=== PATIENT | female | born 1965 | race Caucasian/White ===

== ENCOUNTER → 2018-01-22 | Outpatient (CLI) | payer OTHER ==
[~2018-01-22] MED LIST: AUGMENTIN 875875 MG PO; HYDROXYZINE HCL10 M1 PO; IBUPROFEN 800800 M1 PO; IBUPROFEN 800800 MG PO; KEFLEX500 MG PO; NORCO 5-325 TA1 EACH PO; ONDANSETRON HCL4 M2 PO; PERCOCET PO; PRILOSEC; SILVADENE20 GM TP; ULTRAM 50MG TAB50 MG PO; ZOFRAN ODT4 MG PO
== END ==
LOC: M.RAD 11:16
DX: Z12.31 Encounter for screening mammogram for malignant neoplasm of breast (principal)

== ENCOUNTER 2019-01-09 08:52 | Emergency (ER) | payer OTHER ==
[~2019-01-09] VITALS: Ht 149.9 cm; Wt 65.8 kg
[2019-01-09] MEDS ORDERED: REQUIP 1 MG TABL1 M1 PO (09:02)
[2019-01-09 09:06] LABS: ICTOTEST (BILI CONFIRMATORY) Negative (Negative); URINE BILIRUBIN 1+ (Negative); URINE BLOOD 3+ (Negative); URINE CLARITY CLEAR; URINE COLOR YELLOW; URINE GLUCOSE-RANDOM NEGATIVE (Negative); URINE KETONES NEGATIVE (Negative); URINE LEUKOCYTES-REFLEX NEGATIVE (Negative); URINE NITRITE-REFLEX NEGATIVE (Negative); URINE PROTEIN TRACE (Negative); URINE SPECIFIC GRAVITY >= 1.030 (1.005-1.030); URINE UROBILINOGEN 0.2 E.U./dl (0.2-1.0)
[2019-01-09 09:20] LABS: ABSOLUTE BASOPHILS 0.1 thou/uL (0.0-0.2); ABSOLUTE EOSINOPHILS 0.1 thou/uL (0.0-0.7); ABSOLUTE LYMPHOCYTES 1.6 thou/uL (0.8-5.3); ABSOLUTE MONOCYTES 0.6 thou/uL (0.0-1.2); ABSOLUTE NEUTROPHILS 9.3 thou/uL (1.6-8.1); BASOPHILS 0.6 %; EOSINOPHILS 0.8 %; HEMATOCRIT 45.1 % (37.0-47.0); HEMOGLOBIN 15.5 gm/dL (12.0-15.0); MCH 32.2 pg (26.0-34.0); MCHC 34.3 g/dL (28.0-37.0); MONOCYTES 5.5 %; MPV 9.1 fl. (7.2-11.1); NUCLEATED RBCS 0 /100WBC; PLATELET COUNT* 246 thou/uL (150-400); POLYS 79.1 %; RDW-CV 13.6 % (10.5-14.5); WBC 11.7 thou/uL (4.0-11.0)
[2019-01-09 09:32] LABS: ALBUMIN 4.1 g/dL (3.4-5.0); CALCIUM 9.1 mg/dL (8.5-10.1); CREATININE 1.2 mg/dL (0.6-1.3); POTASSIUM 3.6 mmol/L (3.5-5.1); TOTAL BILIRUBIN 0.6 mg/dL (<0.1-1.0)
[2019-01-09 09:35] LABS: AMORPHOUS URATES Many /LPF (None Seen); BACTERIA-REFLEX 1-9 Few /HPF (None Seen); CASTS None Seen /LPF (None Seen); SQUAMOUS 0-3 Few /LPF (0-3); URINE RBC 3-10 Few /HPF (0-2); URINE WBC-REFLEX 0-5 Rare /HPF (0-5)
[2019-01-09] MEDS ORDERED: CIPROFLOXACIN500 M1 PO (11:42)
[2019-01-09] MEDS ORDERED: NORCO 5-325 TA1 EACH PO (11:42)
[2019-01-09] MEDS ORDERED: FLOMAX0.4 MG PO (11:42)
[2019-01-09] MEDS ORDERED: ULTRAM 50MG TAB50 MG PO (11:51)
[2019-01-09 12:03] VITALS: BP 102/64
== END 2019-01-09 12:03 | disposition home or self-care (01) ==
LOC: M.ERS 08:52
PROVIDERS: Family Medicine
DX: N20.0 Calculus of kidney (principal); R11.2 Nausea with vomiting, unspecified; F17.210 Nicotine dependence, cigarettes, uncomplicated; Z88.5 Allergy status to narcotic agent; Z98.890 Other specified postprocedural states